=== PATIENT | female | born 1990 | race Caucasian/White ===

== ENCOUNTER 2020-06-14 22:42 | Observation (INO) | payer BC ==
[2020-06-14 23:46] LABS: Appearance CLOUDY (CLEAR); Bilirubin NEGATIVE (NEGATIVE); Blood NEGATIVE Ery/ul (0-5); Epithelial Cells MODERATE /HPF (FEW); Glucose NEGATIVE (NEGATIVE); Ketones NEGATIVE (NEGATIVE); Leukocyte Esterase NEGATIVE (NEGATIVE); Mucus SLIGHT /HPF (NEGATIVE); Nitrite NEGATIVE (NEGATIVE); Protein,Urine Dip NEGATIVE (Negative); Specific Gravity 1.019 (1.005-1.025); Urobilinogen NEGATIVE mg/dL (0-1)
[2020-06-14 23:51] LABS: Amphetamine,Urine NEGATIVE (NEGATIVE); Barbiturate,Urine NEGATIVE (NEGATIVE); Benzodiazepine,Urine NEGATIVE (NEGATIVE); Cocaine,Urine NEGATIVE (NEGATIVE); Methadone,Urine NEGATIVE (NEGATIVE); Opiate,Urine NEGATIVE (NEGATIVE); PCP,Urine NEGATIVE (NEGATIVE); THC,Urine NEGATIVE (NEGATIVE)
[2020-06-15] MEDS ORDERED: Lactated Ringers 1,000 ML IV ONE ×2 (01:30→01:32)
[2020-06-15 02:06] LABS: Absolute Neutrophil Ct (ANC) 5.48 (1.4-6.9); BASOPHIL % 0.2 % (0.0-0.4); Basophil (Absolute #) 0.01 (0-0.4); Eosinophil % 0.5 % (0.00-5.0); Eosinophil (Absolute #) 0.03 (0-0.5); Hematocrit 35.1 % (35-47); Hemoglobin 11.5 gm/dl (12.0-16.0); Lymphocyte (Absolute #) 0.67 (1.0-4.6); Lymphocytes % 10.1 % (24.0-44.0); Mean Cell Volume 87.1 fl (78-100); Mean Corpuscular Hemoglobin 28.5 pg (26-32); Mean Corpuscular Hgb Concent. 32.8 g/dl (32-36); Monocyte (Absolute #) 0.46 (0.0-1.3); Monocytes % 6.9 % (0.0-12.0); Neutrophil % 82.3 % (36.0-66.0); Platelet Count 139 K/mm3 (150-450); Red Blood Count 4.03 M/mm3 (4.1-5.4); Red Cell Distribution Width 13.9 % (11.5-14.0); White Blood Count 6.7 K/mm3 (4.0-10.5)
[2020-06-15 02:19] LABS: ALBUMIN 3.2 g/dL (3.5-5.0); ALKALINE PHOSPHATASE 67 U/L (38-126); ANION GAP 10.3 MEQ/L (5-15); BLOOD UREA NITROGEN 9 mg/dL (7-17); CHLORIDE 106 mmol/L (98-107); Calcium 8.8 mg/dL (8.4-10.2); Carbon Dioxide 20 mmol/L (22-30); Creatinine 1 0.66 mg/dL (0.52-1.04); EST GLOMERULAR FILTRATION RATE > 60.0 ML/MIN; Glucose 101 mg/dL (74-106); Potassium 3.6 mmol/L (3.5-5.1); SGOT/AST 34 U/L (14-36); SGPT/ALT 18 U/L (0-35); SODIUM 132 mmol/L (137-145); Total Protein 5.9 g/dL (6.3-8.2)
[2020-06-15] MEDS ORDERED: Lactated Ringers 1,000 ML IV SCH ×2 (02:30→08:30)
[2020-06-15] MEDS: PROCARDIA 10 MG PO SCH ×2 (05:30→05:49)
[2020-06-15] MEDS ORDERED: TYLENOL 325 MG PO PRN (05:32)
[2020-06-15] MEDS ORDERED: BRETHINE 1 MG/ML SQ ONE (06:35)
[2020-06-15] MEDS ORDERED: TRANDATE 20 MG/5 ML SYRINGE IV PRN (08:18)
[2020-06-15 08:42] LABS: INR 1.04 (0.8-3.0); PROTIME 11.8 SECONDS (9.95-12.35)
[2020-06-15 08:44] LABS: PTT 24.3 SECONDS (25.3-37.0)
[2020-06-15 08:46] LABS: ALBUMIN 2.7 g/dL (3.5-5.0); ALKALINE PHOSPHATASE 61 U/L (38-126); ANION GAP 10.8 MEQ/L (5-15); BLOOD UREA NITROGEN 6 mg/dL (7-17); CHLORIDE 106 mmol/L (98-107); Calcium 8.3 mg/dL (8.4-10.2); Carbon Dioxide 19 mmol/L (22-30); Creatinine 1 0.65 mg/dL (0.52-1.04); EST GLOMERULAR FILTRATION RATE > 60.0 ML/MIN; Glucose 209 mg/dL (74-106); SGOT/AST 30 U/L (14-36); SGPT/ALT 17 U/L (0-35); SODIUM 132 mmol/L (137-145); Total Protein 5.4 g/dL (6.3-8.2)
[2020-06-15] MEDS: Magnesium Sulfate 40 Gm/1000 Ml H2O Premix*** 1,000 ML IV SCH (08:53)
[2020-06-15] MEDS: Celestone Soluspan 6MG/ML IM SCH (08:53)
[2020-06-15] MEDS: HUMALOG SQ PRN ×6 (09:30→20:57)
[2020-06-15] MEDS ORDERED: FERROUS FUM PO SCH (10:00)
[2020-06-15] MEDS ORDERED: [UNRECOGNIZED DRUG - OTHER] PO SCH (10:00)
[2020-06-15] MEDS ORDERED: PRENATAL VIT PO SCH (10:00)
[2020-06-15] MEDS ORDERED: THERAGRAN MULTIVITAMIN PO SCH (10:00)
[2020-06-15] MEDS ORDERED: INSULIN NPH HUMAN ISOPHANE SQ SCH (10:00)
[2020-06-15] MEDS ORDERED: SYNTHROID 25 MCG PO SCH (10:00)
[2020-06-15] MEDS ORDERED: POTASSIUM CHLORIDE 20 mEq IN WATER 100ML 20 MEQ/100 ML BAG IV ONE (10:00)
[2020-06-15 10:29] LABS: Creatinine, Urine Random 70.7 mg/dl (30-125)
--- NOTE | 2020-06-15 15:17 | XRAY ---
Indication: Gestational hypertension. Ultrasound biophysical profile exam performed. Comparison: None There is a single viable intrauterine in cephalic presentation with heart rate documented. Four-quadrant ZAC is 17.8 cm. 2 points given for breathing, movements, tone, and qualitative amniotic fluid volume. Impression: Total biophysical profile score is 8 out of 8.
[2020-06-15 15:45] LABS: MAGNESIUM 4.5 mg/dL (1.6-2.3); Potassium 4.2 mmol/L (3.5-5.1)
[2020-06-15] MEDS: Novolin N SQ SCH (17:33)
[2020-06-16] MEDS: Magnesium Sulfate 40 Gm/1000 Ml H2O Premix*** 1,000 ML IV SCH (04:45)
[2020-06-16 07:24] VITALS: O2SAT 98
[2020-06-16] MEDS: Novolin N SQ SCH (08:31)
[2020-06-16] MEDS: Celestone Soluspan 6MG/ML IM SCH (09:23)
[2020-06-16 09:55] LABS: ALBUMIN 3.4 g/dL (3.5-5.0); ALKALINE PHOSPHATASE 80 U/L (38-126); ANION GAP 10.7 MEQ/L (5-15); BLOOD UREA NITROGEN 5 mg/dL (7-17); CHLORIDE 107 mmol/L (98-107); Calcium 7.3 mg/dL (8.4-10.2); Carbon Dioxide 20 mmol/L (22-30); Creatinine 1 0.59 mg/dL (0.52-1.04); EST GLOMERULAR FILTRATION RATE > 60.0 ML/MIN; Glucose 162 mg/dL (74-106); Potassium 3.9 mmol/L (3.5-5.1); SGOT/AST 26 U/L (14-36); SGPT/ALT 19 U/L (0-35); SODIUM 133 mmol/L (137-145); Total Protein 6.3 g/dL (6.3-8.2)
[2020-06-16 10:43] VITALS: BP 134/87; PULSE 88
== END 2020-06-16 09:55 | disposition home or self-care (01) ==
LOC: OB 22:42 → UNDOADMOB 22:42
PROVIDERS: ADMIT Family Medicine; ATTEND Family Medicine
DX: O13.3 Gestational [pregnancy-induced] hypertension without significant proteinuria, third trimester (principal); Z3A.33 33 weeks gestation of pregnancy; O24.313 Unspecified pre-existing diabetes mellitus in pregnancy, third trimester; E11.9 Type 2 diabetes mellitus without complications; Z79.4 Long term (current) use of insulin; O60.03 Preterm labor without delivery, third trimester
CPT/HCPCS: 36415; 76819; 80053; 80307; 81001; 81002; 82570; 82731; 82962; 83735; 84132; 84156; 84550; 85025; 85610; 85730; 93012; 96372; G0378; J0702; J1817; J3480; A9270-GY

== ENCOUNTER 2020-06-22 15:58 | Observation (INO) | payer BC ==
[2020-06-22 16:43] VITALS: PULSE 68
[2020-06-22 17:20] VITALS: BP 126/84
--- NOTE | 2020-06-23 04:22 | XRAY ---
Exam: OB biophysical profile without nonstress from 06/22/2020. Comparison: OB biophysical profile from 06/15/2020. Indication: 30-year-old female with type II diabetes mellitus. Findings: There is a score of 2 points for breathing movements, gross body movements, tone, and qualitative amniotic fluid for a total of 8 points out of a maximum of 8 points. This is unchanged. cardiac activity was documented. The heart rate measured 161 bpm. The amniotic fluid index measured 15.6 cm. The fetus is in the cephalic lie. Impression: 1. Biophysical profile is again 8 points out of a maximum of 8 points representing no change from 06/15/2020.
== END 2020-06-22 17:05 | disposition home or self-care (01) ==
LOC: OB 15:58
PROVIDERS: ADMIT Family Medicine; ATTEND Family Medicine
DX: O24.913 Unspecified diabetes mellitus in pregnancy, third trimester (principal); O99.283 Endocrine, nutritional and metabolic diseases complicating pregnancy, third trimester; Z3A.34 34 weeks gestation of pregnancy
CPT/HCPCS: 59025; 76818; G0378

== ENCOUNTER 2020-07-15 16:07 | Inpatient (IN) | payer BC ==
[2020-07-15] MEDS ORDERED: XYLOCAINE 1% HCL 20 ML MDV IJ PRN (16:40)
[2020-07-15] MEDS ORDERED: Phenergan 25 MG INJ IV PRN (16:40)
[2020-07-15] MEDS ORDERED: Nubain 10 MG/ML IV PRN (16:40)
[2020-07-15] MEDS ORDERED: STADOL 2 MG IV PRN (16:40)
[2020-07-15] MEDS ORDERED: Zofran 4 MG/2 ML VIAL IV PRN (16:40)
[2020-07-15 17:14] LABS: Absolute Neutrophil Ct (ANC) 4.74 (1.4-6.9); BASOPHIL % 0.1 % (0.0-0.4); Basophil (Absolute #) 0.01 (0-0.4); Eosinophil % 0.4 % (0.00-5.0); Eosinophil (Absolute #) 0.03 (0-0.5); Hemoglobin 11.6 gm/dl (12.0-16.0); Lymphocyte (Absolute #) 1.91 (1.0-4.6); Lymphocytes % 26.7 % (24.0-44.0); Mean Cell Volume 86.2 fl (78-100); Mean Corpuscular Hemoglobin 28.6 pg (26-32); Mean Corpuscular Hgb Concent. 33.1 g/dl (32-36); Mean Platelet Volume 12.7 fl (7.5-11.0); Monocyte (Absolute #) 0.47 (0.0-1.3); Monocytes % 6.6 % (0.0-12.0); Neutrophil % 66.2 % (36.0-66.0); Platelet Count 133 K/mm3 (150-450); Red Blood Count 4.06 M/mm3 (4.1-5.4); Red Cell Distribution Width 14.7 % (11.5-14.0); White Blood Count 7.2 K/mm3 (4.0-10.5)
[2020-07-15 17:19] LABS: INR 0.95 (0.8-3.0); PROTIME 10.7 SECONDS (9.95-12.35)
[2020-07-15 17:21] LABS: PTT 23.3 SECONDS (25.3-37.0)
[2020-07-15 17:23] LABS: ALBUMIN 3.3 g/dL (3.5-5.0); ALKALINE PHOSPHATASE 97 U/L (38-126); ANION GAP 9.8 MEQ/L (5-15); BLOOD UREA NITROGEN 10 mg/dL (7-17); CHLORIDE 110 mmol/L (98-107); Calcium 9.2 mg/dL (8.4-10.2); Carbon Dioxide 18 mmol/L (22-30); Creatinine 1 0.73 mg/dL (0.52-1.04); EST GLOMERULAR FILTRATION RATE > 60.0 ML/MIN; Glucose 90 mg/dL (74-106); Potassium 4.3 mmol/L (3.5-5.1); SGOT/AST 32 U/L (14-36); SGPT/ALT 12 U/L (0-35); SODIUM 133 mmol/L (137-145); Total Protein 6.1 g/dL (6.3-8.2)
[2020-07-15] MEDS: CYTOTEC PO SCH ×4 (17:34→23:40)
[2020-07-15] MEDS: Lactated Ringers 1,000 ML IV SCH (17:36)
[2020-07-15] MEDS ORDERED: Calcium Gluconate 10% 1000 MG IV PRN (17:37)
[2020-07-15] MEDS: Magnesium Sulfate 40 Gm/1000 Ml H2O Premix*** 1,000 ML IV SCH (17:37)
[2020-07-15 18:26] LABS: Appearance SLIGHTLY CLOUDY (CLEAR); Bacteria RARE /HPF (NEGATIVE); Bilirubin NEGATIVE (NEGATIVE); Blood SMALL Ery/ul (0-5); Epithelial Cells RARE /HPF (FEW); Glucose NEGATIVE (NEGATIVE); Ketones NEGATIVE (NEGATIVE); Leukocyte Esterase NEGATIVE (NEGATIVE); Mucus SLIGHT /HPF (NEGATIVE); Nitrite NEGATIVE (NEGATIVE); Protein,Urine Dip 100 (Negative); Specific Gravity 1.016 (1.005-1.025); Urobilinogen NEGATIVE mg/dL (0-1)
[2020-07-15 18:30] LABS: Amphetamine,Urine NEGATIVE (NEGATIVE); Barbiturate,Urine NEGATIVE (NEGATIVE); Benzodiazepine,Urine NEGATIVE (NEGATIVE); Cocaine,Urine NEGATIVE (NEGATIVE); Methadone,Urine NEGATIVE (NEGATIVE); Opiate,Urine NEGATIVE (NEGATIVE); PCP,Urine NEGATIVE (NEGATIVE); THC,Urine NEGATIVE (NEGATIVE)
[2020-07-16] MEDS: CYTOTEC PO SCH ×3 (01:40→05:40)
[2020-07-16] MEDS ORDERED: BRETHINE 1 MG/ML SQ PRN (03:02)
[2020-07-16] MEDS: TYLENOL EXTRA STRENGTH 500 MG PO PRN ×2 (03:19→20:07)
[2020-07-16] MEDS: TRANDATE 20 MG/5 ML SYRINGE IV PRN ×2 (04:11→05:09)
[2020-07-16] MEDS ORDERED: Ephedrine Sulfate 50 MG/ML IV PRN (04:46)
[2020-07-16] MEDS ORDERED: Lactated Ringers 1,000 ML IV ONE ×2 (04:46→08:00)
[2020-07-16] MEDS ORDERED: PITOCIN 30 UNITS/ LR 500 ML 30 UNITS/500 ML IV.SOLN. IV SCH ×2 (06:00)
[2020-07-16] MEDS ORDERED: OB EPIDURAL NAROPIN/SUFENTANIL IN NACL EPIDURAL PRN (08:00)
[2020-07-16] MEDS ORDERED: HUMULIN R SQ PRN (08:19)
[2020-07-16] MEDS: SYNTHROID 25 MCG PO SCH (10:32)
[2020-07-16] MEDS: Magnesium Sulfate 40 Gm/1000 Ml H2O Premix*** 1,000 ML IV SCH (10:32)
[2020-07-16 12:59] LABS: Absolute Neutrophil Ct (ANC) 10.73 (1.4-6.9); BASOPHIL % 0.2 % (0.0-0.4); Basophil (Absolute #) 0.02 (0-0.4); Eosinophil % 0.1 % (0.00-5.0); Eosinophil (Absolute #) 0.01 (0-0.5); Hematocrit 36.9 % (35-47); Hemoglobin 12.2 gm/dl (12.0-16.0); Lymphocyte (Absolute #) 1.16 (1.0-4.6); Lymphocytes % 9.2 % (24.0-44.0); Mean Cell Volume 86.4 fl (78-100); Mean Corpuscular Hemoglobin 28.6 pg (26-32); Mean Corpuscular Hgb Concent. 33.1 g/dl (32-36); Mean Platelet Volume 12.7 fl (7.5-11.0); Monocyte (Absolute #) 0.67 (0.0-1.3); Monocytes % 5.3 % (0.0-12.0); Neutrophil % 85.2 % (36.0-66.0); Platelet Count 124 K/mm3 (150-450); Red Blood Count 4.27 M/mm3 (4.1-5.4); Red Cell Distribution Width 14.8 % (11.5-14.0); White Blood Count 12.6 K/mm3 (4.0-10.5)
[2020-07-16 13:10] LABS: ALBUMIN 3.2 g/dL (3.5-5.0); ALKALINE PHOSPHATASE 119 U/L (38-126); ANION GAP 11.4 MEQ/L (5-15); BLOOD UREA NITROGEN 8 mg/dL (7-17); CHLORIDE 107 mmol/L (98-107); Calcium 7.7 mg/dL (8.4-10.2); Carbon Dioxide 17 mmol/L (22-30); Creatinine 1 0.82 mg/dL (0.52-1.04); EST GLOMERULAR FILTRATION RATE > 60.0 ML/MIN; Glucose 90 mg/dL (74-106); SGOT/AST 23 U/L (14-36); SGPT/ALT 12 U/L (0-35); SODIUM 132 mmol/L (137-145)
[2020-07-16] MEDS ORDERED: Mylicon 80MG PO PRN (14:16)
[2020-07-16] MEDS ORDERED: NORCO 5/325 MG PO PRN (14:16)
[2020-07-16] MEDS ORDERED: CORTISONE 1% CREAM TP PRN (14:16)
[2020-07-16] MEDS ORDERED: Anucort-HC SUPPOSITORY PR PRN (14:16)
[2020-07-16] MEDS ORDERED: Dulcolax 10 MG SUPP PR PRN (14:16)
[2020-07-16] MEDS: Lactated Ringers 1,000 ML IV SCH (15:27)
[2020-07-16] MEDS: TUCKS TP PRN (15:27)
[2020-07-16] MEDS: Dermoplast Spray TP PRN (15:28)
[2020-07-16] MEDS: MOTRIN 400 MG PO PRN ×2 (15:30→21:41)
[2020-07-16] MEDS ORDERED: Lasix 20 MG/2 ML IV SCH (18:00)
[2020-07-16] MEDS: Colace 100 MG PO SCH (21:41)
[2020-07-17] MEDS: TYLENOL EXTRA STRENGTH 500 MG PO PRN ×2 (00:07→11:11)
[2020-07-17 04:09] LABS: ALBUMIN 2.6 g/dL (3.5-5.0); ALKALINE PHOSPHATASE 79 U/L (38-126); ANION GAP 8.4 MEQ/L (5-15); BLOOD UREA NITROGEN 10 mg/dL (7-17); CHLORIDE 105 mmol/L (98-107); Carbon Dioxide 22 mmol/L (22-30); Creatinine 1 0.98 mg/dL (0.52-1.04); EST GLOMERULAR FILTRATION RATE > 60.0 ML/MIN; Glucose 119 mg/dL (74-106); Potassium 4.1 mmol/L (3.5-5.1); SGOT/AST 25 U/L (14-36); SGPT/ALT 11 U/L (0-35); SODIUM 131 mmol/L (137-145); Total Protein 4.9 g/dL (6.3-8.2)
[2020-07-17 04:10] LABS: Absolute Neutrophil Ct (ANC) 9.29 (1.4-6.9); BASOPHIL % 0.2 % (0.0-0.4); Basophil (Absolute #) 0.02 (0-0.4); Eosinophil % 0.3 % (0.00-5.0); Eosinophil (Absolute #) 0.04 (0-0.5); Hematocrit 29.5 % (35-47); Hemoglobin 9.6 gm/dl (12.0-16.0); Lymphocyte (Absolute #) 2.57 (1.0-4.6); Lymphocytes % 20.2 % (24.0-44.0); Mean Cell Volume 87.8 fl (78-100); Mean Corpuscular Hemoglobin 28.6 pg (26-32); Mean Corpuscular Hgb Concent. 32.5 g/dl (32-36); Mean Platelet Volume 12.6 fl (7.5-11.0); Monocyte (Absolute #) 0.81 (0.0-1.3); Monocytes % 6.4 % (0.0-12.0); Neutrophil % 72.9 % (36.0-66.0); Platelet Count 109 K/mm3 (150-450); Red Blood Count 3.36 M/mm3 (4.1-5.4); Red Cell Distribution Width 14.9 % (11.5-14.0); White Blood Count 12.7 K/mm3 (4.0-10.5)
[2020-07-17] MEDS: Lactated Ringers 1,000 ML IV SCH (04:10)
[2020-07-17] MEDS: Magnesium Sulfate 40 Gm/1000 Ml H2O Premix*** 1,000 ML IV SCH (04:10)
[2020-07-17 04:13] LABS: MAGNESIUM 6.6 mg/dL (1.6-2.3)
[2020-07-17] MEDS: MOTRIN 400 MG PO PRN ×2 (09:23→21:53)
[2020-07-17] MEDS: FERREX 150 PO SCH (09:23)
[2020-07-17] MEDS: Colace 100 MG PO SCH ×2 (09:23→21:53)
[2020-07-17] MEDS: SYNTHROID 25 MCG PO SCH (09:23)
[2020-07-17] MEDS: TUCKS TP PRN (22:07)
[2020-07-17] MEDS: Dermoplast Spray TP PRN (22:07)
[2020-07-18 06:08] LABS: Absolute Neutrophil Ct (ANC) 6.31 (1.4-6.9); BASOPHIL % 0.1 % (0.0-0.4); Basophil (Absolute #) 0.01 (0-0.4); Eosinophil % 0.9 % (0.00-5.0); Eosinophil (Absolute #) 0.08 (0-0.5); Hematocrit 30.9 % (35-47); Hemoglobin 9.6 gm/dl (12.0-16.0); Lymphocyte (Absolute #) 2.34 (1.0-4.6); Lymphocytes % 25.3 % (24.0-44.0); Mean Cell Volume 90.9 fl (78-100); Mean Corpuscular Hemoglobin 28.2 pg (26-32); Mean Corpuscular Hgb Concent. 31.1 g/dl (32-36); Mean Platelet Volume 12.4 fl (7.5-11.0); Monocyte (Absolute #) 0.52 (0.0-1.3); Monocytes % 5.6 % (0.0-12.0); Neutrophil % 68.1 % (36.0-66.0); Platelet Count 123 K/mm3 (150-450); Red Cell Distribution Width 15.5 % (11.5-14.0); White Blood Count 9.3 K/mm3 (4.0-10.5)
[2020-07-18 06:13] LABS: ALKALINE PHOSPHATASE 84 U/L (38-126); ANION GAP 6.1 MEQ/L (5-15); BLOOD UREA NITROGEN 11 mg/dL (7-17); CHLORIDE 110 mmol/L (98-107); Calcium 7.9 mg/dL (8.4-10.2); Carbon Dioxide 25 mmol/L (22-30); Creatinine 1 0.88 mg/dL (0.52-1.04); EST GLOMERULAR FILTRATION RATE > 60.0 ML/MIN; Glucose 95 mg/dL (74-106); Potassium 4.3 mmol/L (3.5-5.1); SGOT/AST 33 U/L (14-36); SGPT/ALT 12 U/L (0-35); SODIUM 137 mmol/L (137-145); Total Protein 5.5 g/dL (6.3-8.2)
[2020-07-18] MEDS: Colace 100 MG PO SCH (09:08)
[2020-07-18] MEDS: FERREX 150 PO SCH (09:08)
[2020-07-18] MEDS: SYNTHROID 25 MCG PO SCH (09:08)
[2020-07-18] MEDS: MOTRIN 400 MG PO PRN (09:08)
[2020-07-18 10:13] VITALS: BP 135/66; PULSE 79; O2SAT 97
== END 2020-07-18 14:30 | disposition home or self-care (01) | DRG 807 ==
LOC: OB 16:11 → OBSVTOIN 07-16 01:20
PROVIDERS: ADMIT Family Medicine; ATTEND Family Medicine
PROC: 10E0XZZ Delivery of Products of Conception, External Approach (ICD-10-PCS; principal; 2020-07-16)
PROC: 0W8NXZZ Division of Female Perineum, External Approach (ICD-10-PCS; 2020-07-16)
DX: O66.0 Obstructed labor due to shoulder dystocia (principal); Z37.0 Single live birth; O14.14 Severe pre-eclampsia complicating childbirth; O99.284 Endocrine, nutritional and metabolic diseases complicating childbirth; O24.92 Unspecified diabetes mellitus in childbirth; Z3A.37 37 weeks gestation of pregnancy; D69.6 Thrombocytopenia, unspecified
CPT/HCPCS: 36415; 80053; 80307; 81001; 81003; 82962; 83735; 85025; 85610; 85730; 87086; 87340; 94799; G0378; J1815; J1940; J2405; J2590; J2795; A9270-GY

== ENCOUNTER 2022-04-13 20:45 | Emergency (ER) | payer BC ==
[2022-04-13 21:13] VITALS: O2SAT 98
--- NOTE | 2022-04-13 21:19 | ERPHSYRPT ---
- History of Present Illness Time Seen by Provider: 04/13/22 21:16 Source: patient Exam Limitations: no limitations Physician History: Patient a 32-year-old female presents to our ED with complaints of injury to her right foot. Patient states she twisted her foot while doing a handstand with her daughter. Patient has pain at the medial arch as well as along the long plantar ligament. Pain worse with ambulation and weightbearing. Pain improved with rest. No blunt trauma. No fever. Patient has history of diabetes. Patient states she always has some mild degree of numbness to both feet.. Patient denies weakness. Patient denies associated nausea or vomiting. No chest pain or shortness of breath. No hip knee or ankle pain. Patient voices no other complaints at this time. Patient declined pain medication. Portions of this note were created with voice recognition technology. There may be grammatical, spelling, punctuation or sound alike errors Method of Injury: twisted Occurred: just prior to arrival Quality: constant Severity of Pain-Max: moderate Severity of Pain-Current: moderate Lower Extremities Pain: foot: right Modifying Factors: Improves With: movement (Weightbearing and palpation to the plantar surface of patient's right foot reproduces symptoms.) Associated Symptoms: none, No snapping sensation, No popping sensation Allergies/Adverse Reactions: ceftriaxone sodium [From Rocephin] Allergy (Verified 04/13/22 21:19) Hives Sulfa (Sulfonamide Antibiotics) [Sulfa(Sulfonamide Antibiotics)] Allergy (Verified 04/13/22 21:19) Hives Home Medications: Metformin HCl 500 mg [Glucophage 500 MG] 1,000 mg PO BID 04/13/22 [History] Hx Tetanus, Diphtheria Vaccination/Date Given: No Hx Influenza Vaccination/Date Given: No Hx Pneumococcal Vaccination/Date Given: No - Review of Systems Constitutional: No Symptoms, No Fever, No Chills Eyes: No Symptoms Ears, Nose, & Throat: No Symptoms Respiratory: No Symptoms, No Cough, No Dyspnea Cardiac: No Symptoms, No Chest Pain, No Edema, No Syncope Abdominal/Gastrointestinal: No Symptoms, No Abdominal Pain, No Nausea, No Vomiting, No Diarrhea Genitourinary Symptoms: No Symptoms, No Dysuria Musculoskeletal: No Symptoms, No Back Pain, No Neck Pain Skin: No Symptoms, No Rash Neurological: No Symptoms, No Dizziness, No Focal Weakness, No Sensory Changes Psychological: No Symptoms Endocrine: No Symptoms Hematologic/Lymphatic: No Symptoms Immunological/Allergic: No Symptoms All Other Systems: Reviewed and Negative - Past Medical History Pertinent Past Medical History: No Neurological History: No Pertinent History ENT History: No Pertinent History Cardiac History: No Pertinent History Respiratory History: No Pertinent History Endocrine Medical History: No Pertinent History Musculoskeletal History: No Pertinent History GI Medical History: No Pertinent History History: No Pertinent History Psycho-Social History: No Pertinent History Female Reproductive Disorders: No Pertinent History - Past Surgical History Past Surgical History: No Neuro Surgical History: No Pertinent History Cardiac: No Pertinent History Respiratory: No Pertinent History Gastrointestinal: No Pertinent History Genitourinary: No Pertinent History Musculoskeletal: Other Female Surgical History: No Pertinent History Other Surgical History: left hand surgery 2016 - Social History Smoking Status: Never smoker How long have you smoked: 5 Exposure to second hand smoke: No Drug Use: none Patient Lives Alone: Yes Significant Family History: no pertinent family hx - Nursing Vital Signs Nursing Vital Signs: Initial Vital Signs Temperature 98.0 F 04/13/22 21:11 Pulse Rate 83 04/13/22 21:11 Respiratory Rate 18 04/13/22 21:11 Blood Pressure 146/98 04/13/22 21:11 O2 Sat by Pulse Oximetry 98 04/13/22 21:11 Pain Scale Pain Intensity 7 - Physical Exam General Appearance: no apparent distress, alert Eyes, Ears, Nose, Throat Exam: normal ENT inspection, pharynx normal, moist mucous membranes, No dry mucous membranes Neck Exam: normal inspection, non-tender, supple, full range of motion Cardiovascular/Respiratory Exam: chest non-tender, normal breath sounds, regular rate/rhythm, heart sounds normal, no respiratory distress Gastrointestinal/Abdominal Exam: non-tender, soft, guarding Back Exam: normal inspection, normal range of motion, No CVA tenderness, No vertebral tenderness Hips Exam: bilateral: non-tender, normal inspection, normal range of motion, no evidence of injury Legs Exam: bilateral leg: non-tender, normal inspection, normal range of motion, no evidence of injury Knees Exam: bilateral knee: non-tender, normal inspection, normal range of motion, no evidence of injury Ankle Exam: bilateral ankle: non-tender, normal inspection, normal range of motion, no evidence of injury Foot Exam: right foot: pain (Pain primarily at the arch of the left foot as well as the long plantar ligament. Extremities neurovascular intact distally. Compartments are soft. Cap refill less than 2 seconds.), soft tissue tenderness, left foot: non-tender, normal inspection, normal range of motion, no evidence of injury Neuro/Tendon Exam: normal sensation, normal motor functions, normal tendon functions Mental Status Exam: alert, oriented x 3, cooperative Skin Exam: normal color, warm, dry SpO2 Interpretation: normal SpO2: 98 O2 Delivery: Room Air - Course Nursing assessment & vital signs reviewed: Yes - Radiology Exams Foot X-ray Interpretation: Interpreted by me (No fracture dislocations. No soft tissue abnormalities) Ordered Tests: Active Orders 24 hr Category Date Time Status FOOT (MINIMUM 3 VIEWS) Stat Exams 04/13/22 21:13 Taken - Progress Progress: improved Progress Note: Patient reassessed. She is comfortable. Patient declined pain medication. X- rays negative for fracture dislocations. Clinical diagnosis is acute Planter fasciitis. Patient advised on oral anti-inflammatories as needed for pain control. We assessed patient's footwear. Patient requires shoe wear with better arch support. Patient declined crutches. He states his crutches at home. Patient states he is ready for discharge. She agrees to follow-up with her primary care doctor within 48 hours for reevaluation. Patient declined work note. Portions of this note were created with voice recognition technology. There may be grammatical, spelling, punctuation or sound alike errors 04/13/22 22:05 Counseled pt/family regarding: diagnosis, need for follow-up, rad results - Departure Departure Disposition: Home Clinical Impression: Plantar fasciitis of right foot Condition: Stable Critical Care Time: No Referrals: ANDRIY NEFF [Primary Care Provider] - Follow up/PCP as directed Additional Instructions: Discharge/Care Plan SHERITALEONARDA ZENA was seen on 04/13/22 in the Emergency Room. The patient was counseled regarding Diagnosis,Lab results, Imaging studies, need for follow up a nd when to return to the Emergency Room. Prescriptions given: Discharge Note I have spoken with the patient and/or caregivers. I have explained the patient's condition, diagnosis and treatment plan based on the information available to me at this time. I have answered the patient's and/or caregiver's questions and addressed any concerns. The patient and/or caregivers have as good understanding of the patient's diagnosis, condition and treatment plan as can be expected at this point. The vital signs have been stable. The patient's condition is stable and appropriate for discharge from the emergency department. The patient will pursue further outpatient evaluation with the primary care physician or other designated or consulting physician as outlined in the discharge instructions. The patient and/or caregivers are agreeable to this plan of care and follow-up instructions have been explained in detail. The patient and/or caregivers have received these instruction. The patient/and or caregivers are aware that any significant change in condition or worsening of symptoms should prompt an immediate return to this or the closest emergency department or call 911.
[2022-04-13 22:11] VITALS: BP 121/84; PULSE 70
--- NOTE | 2022-04-14 08:50 | XRAY ---
Indication: Pain. Comparison: June 16, 2008 3 nonweightbearing views right foot again demonstrates normal bones, articulation, and soft tissues.
== END 2022-04-13 22:10 | disposition home or self-care (01) ==
LOC: ED 20:45
DX: M72.2 Plantar fascial fibromatosis (principal); M79.671 Pain in right foot; E11.9 Type 2 diabetes mellitus without complications; Z79.84 Long term (current) use of oral hypoglycemic drugs
CPT/HCPCS: 73630; 99282

== ENCOUNTER 2025-07-18 21:18 | Emergency (ER) | payer BC, OTHER ==
[2025-07-18 21:30] VITALS: TEMP 98
--- NOTE | 2025-07-18 21:37 | ERPHSYRPT ---
- History of Present Illness Time Seen by Provider: 07/18/25 21:29 Source: patient Exam Limitations: no limitations Patient Subjective Stated Complaint: pt reports approx one hour ago she was walking and felt a pop in her right ankle, pt reports pain that is sharp in nature and radiates up her leg. pt denies any type of injury or accident. Triage Nursing Assessment: pt is aox3, pupils perrl, afebrile, resps easy and non labored, cap refill < 3 seconds, radial pulses strong and equal, pt skin pink warm dry. mild swelling noted to the right lateral ankle, skin is intact. pt sensation, ROM intact. Physician History: 35-year-old female presents to the emergency room with right ankle pain patient reports she was walking when she felt a pop she reports she was walking on gravel she denies any other injury she reports she is 21 weeks she is now in ED for further eval Method of Injury: twisted Occurred: just prior to arrival Quality: constant Lower Extremities Pain: ankle: right Modifying Factors: Improves With: nothing Associated Symptoms: none Allergies/Adverse Reactions: ceftriaxone sodium [From Rocephin] Allergy (Verified 04/13/22 21:19) Hives Sulfa (Sulfonamide Antibiotics) [Sulfa(Sulfonamide Antibiotics)] Allergy (V erified 04/13/22 21:19) Hives Home Medications: Metformin HCl 500 mg [Glucophage 500 MG] 1,000 mg PO BID 04/13/22 [History] Hx Tetanus, Diphtheria Vaccination/Date Given: Yes Hx Influenza Vaccination/Date Given: No Hx Pneumococcal Vaccination/Date Given: No Immunizations Up to Date: Yes Travel Risk - International Travel Have you traveled outside of the country in past 3 weeks: No - Emerging Infectious Disease Are you exhibiting symptoms associated with any current EIDs: No - Review of Systems Constitutional: No Fever, No Chills Eyes: No Symptoms Ears, Nose, & Throat: No Symptoms Respiratory: No Cough, No Dyspnea Cardiac: No Chest Pain, No Edema, No Syncope Abdominal/Gastrointestinal: No Abdominal Pain, No Nausea, No Vomiting, No Diarrhea Genitourinary Symptoms: No Dysuria Musculoskeletal: Injury, No Back Pain, No Neck Pain Skin: No Rash Neurological: No Dizziness, No Focal Weakness, No Sensory Changes Psychological: No Symptoms Endocrine: No Symptoms All Other Systems: Reviewed and Negative - Past Medical History Pertinent Past Medical History: Yes Neurological History: No Pertinent History ENT History: No Pertinent History Cardiac History: No Pertinent History Respiratory History: No Pertinent History Endocrine Medical History: No Pertinent History, Diabetes Type II Musculoskeletal History: No Pertinent History GI Medical History: No Pertinent History History: No Pertinent History Psycho-Social History: No Pertinent History Female Reproductive Disorders: No Pertinent History - Past Surgical History Past Surgical History: Yes Neuro Surgical History: No Pertinent History Cardiac: No Pertinent History Respiratory: No Pertinent History Gastrointestinal: No Pertinent History Genitourinary: No Pertinent History Musculoskeletal: Other Female Surgical History: No Pertinent History Other Surgical History: left hand surgery 2016 Significant Family History: no pertinent family hx - Female History Hx Last Menstrual Period: last month Hx Now: Yes Gestational Age: 22 - Social History Smoking Status: Never smoker Exposure to second hand smoke: No Drug Use: none - Social Determinants of Health Will the patient participate in the screening: Yes Do you worry about a steady place to live?: No Do you have any problems with any of the following?: No known problems In the past 12 months,have you had to go without utilities?: No Transportation Issues: No Has anyone in your support network made you feel unsafe?: No Have you or anyone in your house had to go w/o enough food: No - Nursing Vital Signs Nursing Vital Signs: Initial Vital Signs Temperature 98.0 F 07/18/25 21:20 Pulse Rate 71 07/18/25 21:20 Respiratory Rate 20 07/18/25 21:20 Blood Pressure 151/102 07/18/25 21:20 O2 Sat by Pulse Oximetry 99 07/18/25 21:20 Pain Scale Pain Intensity 10 - Physical Exam General Appearance: alert Eyes, Ears, Nose, Throat Exam: moist mucous membranes Neck Exam: non-tender, supple Cardiovascular/Respiratory Exam: chest non-tender, normal breath sounds, regular rate/rhythm, no respiratory distress Gastrointestinal/Abdominal Exam: non-tender, guarding Back Exam: normal inspection, No vertebral tenderness Ankle Exam: right ankle: pain, soft tissue tenderness, swelling Neuro/Tendon Exam: normal sensation, normal motor functions Mental Status Exam: alert, oriented x 3, cooperative Skin Exam: normal color, warm, dry SpO2: 99 - Course Nursing assessment & vital signs reviewed: Yes - Radiology Exams Right Ankle X-ray Interpretation: Interpreted by me, Negative, No Fracture Ordered Tests: Active Orders 24 hr Category Date Time Status ANKLE (3 VIEWS) Stat Exams 07/18/25 21:28 Taken - Progress Progress Note: 07/18/25 21:37 Pending x-ray to evaluate for fracture 07/18/25 21:48 Patient was given Padilla bandage for comfort no evidence of fracture or dislocation noted recommended follow-up with Ortho clinic as needed will discharge at this time - Departure Departure Disposition: Home Clinical Impression: Ankle sprain Qualifiers: Encounter type: initial encounter Involved ligament of ankle: unspecified ligament Laterality: right Qualified Code(s): S93.401A - Sprain of unspecified ligament of right ankle, initial encounter Condition: Stable Critical Care Time: No Referrals: [facility] [place] [Provider Group] - Follow up/PCP as directed SAVANNA JULIO DO [ACTIVE STAFF, ORTHOPEDICS] - Follow up/PCP as directed Instructions: Ankle sprain, Ankle sprain - ED discharge instructions
[2025-07-18 22:02] VITALS: BP 133/93; PULSE 86; RESP 16; O2SAT 96
--- NOTE | 2025-07-19 07:38 | XRAY ---
Indication: Pain. No known injury. Comparison: None 3 view right ankle demonstrates 4 x 7 mm well-circumscribed heterotopic ossification tip lateral malleolus either degenerative versus sequela old injury. Tiny posterior/plantar heel spurs and mild lateral soft tissue swelling. No other bony, articular, or soft tissue abnormalities.
== END 2025-07-18 22:00 | disposition home or self-care (01) ==
LOC: ED 21:18
DX: S93.401A Sprain of unspecified ligament of right ankle, initial encounter (principal); Y93.01 Activity, walking, marching and hiking; E11.9 Type 2 diabetes mellitus without complications; Z79.84 Long term (current) use of oral hypoglycemic drugs